=== PATIENT | female | born 1995 | race Caucasian/White ===

== ENCOUNTER 2023-11-27 07:50 | Emergency (ER) | payer SELFPAY ==
[~2023-11-27] VITALS: Ht 162.6 cm; Wt 146.8 kg
[2023-11-27] MEDS ORDERED: NS 1,000 ML IV ONE (08:00)
[2023-11-27] MEDS ORDERED: Iohexol 300 - 100 ML VIAL IV ONE (08:10)
[2023-11-27] MEDS ORDERED: Pantoprazole 40 MG in NS 10 ML IV ONE (08:30)
[2023-11-27 08:59] LABS: BASO # 0.01 K/mm3 (0.02-0.10); CALCIUM 9.5 mg/dL (8.3-10.5); EOS # 0.01 K/mm3 (0.04-0.40); EOS % 0.2 % (1.0-5.0); HEMATOCRIT 54.3 % (37.0-47.0); HEMOGLOBIN 18.3 g/dL (12.5-16.0); LYMPH# 1.86 K/mm3 (1.50-4.00); MEAN CELL VOLUME 94 fl (78-100); MEAN CORPUSCULAR HEMOGLOBIN 32 pg (27-31); MEAN CORPUSCULAR HGB CONC 34 g/dL (33-37); MEAN PLATELET VOLUME 14.4 fl (7.4-10.4); NEU # 1.97 K/mm3 (1.40-6.50); PLATELET COUNT 193 K/mm3 (130-400); RED BLOOD COUNT 5.81 M/mm3 (4.10-5.30); RED CELL DISTRIBUTION WIDTH 13.8 % (11.5-14.5); WHITE BLOOD COUNT 4.5 K/mm3 (4.8-10.8)
[2023-11-27 09:00] LABS: ALBUMIN 4.1 g/dL (3.5-5.0)
[2023-11-27 09:01] LABS: TOTAL PROTEIN 7.3 g/dL (6.4-8.3)
[2023-11-27 09:02] LABS: TOTAL BILIRUBIN 1.2 mg/dL (0.2-1.2)
[2023-11-27] MEDS ORDERED: Potassium Bicarbonate/Citrate 20 MEQ Effervescent TAB PO ONE (09:30)
[2023-11-27] MEDS ORDERED: 1/2 NS & 20 mEq KCl 1,000 ML IV SCH (09:30)
[2023-11-27] MEDS ORDERED: PROTONIX TR40 M1 PO (10:56)
[2023-11-27] MEDS ORDERED: COMPAZINE10 M2 PO (10:56)
[2023-11-27 11:41] VITALS: BP 130/83
== END 2023-11-27 11:10 | disposition home or self-care (01) ==
LOC: ED 07:50
PROVIDERS: Family Medicine
DX: R11.2 Nausea with vomiting, unspecified (principal); R10.10 Upper abdominal pain, unspecified; Z98.84 Bariatric surgery status
CPT/HCPCS: C9113; J0780; J3480; J7030; Q9967

== ENCOUNTER 2023-12-10 21:10 | Emergency (ER) | payer SELFPAY ==
[~2023-12-10 21:10] MED LIST: COMPAZINE10 M2 PO; Ondansetron 4 MG/2 ML VIAL IV ONE; PROTONIX TR40 M1 PO
[2024-02-01 11:55] LABS: ALBUMIN 3.3 g/dL (3.5-5.0); CALCIUM 8.8 mg/dL (8.3-10.5); TOTAL BILIRUBIN 1.5 mg/dL (0.2-1.2); TOTAL PROTEIN 6.2 g/dL (6.4-8.3)
[2024-02-01 12:08] LABS: BASO # 0.01 K/mm3 (0.02-0.10); EOS # 0.01 K/mm3 (0.04-0.40); EOS % 0.2 % (1.0-5.0); HEMATOCRIT 48.5 % (37.0-47.0); HEMOGLOBIN 16.5 g/dL (12.5-16.0); LYMPH# 1.55 K/mm3 (1.50-4.00); MEAN CELL VOLUME 92 fl (78-100); MEAN CORPUSCULAR HEMOGLOBIN 31 pg (27-31); MEAN CORPUSCULAR HGB CONC 34 g/dL (33-37); MEAN PLATELET VOLUME 13.4 fl (7.4-10.4); MONO # 0.55 K/mm3 (0.20-0.80); NEU # 4.22 K/mm3 (1.40-6.50); PLATELET COUNT 128 K/mm3 (130-400); RED BLOOD COUNT 5.27 M/mm3 (4.10-5.30); RED CELL DISTRIBUTION WIDTH 13.2 % (11.5-14.5); WHITE BLOOD COUNT 6.4 K/mm3 (4.8-10.8)
== END 2023-12-11 06:18 ==
LOC: ED 21:10
PROVIDERS: Nurse Practitioner
DX: R11.10 Vomiting, unspecified (principal); R10.9 Unspecified abdominal pain; B37.9 Candidiasis, unspecified
CPT/HCPCS: J2405